=== PATIENT | female | born 1995 | race Hispanic/Latino ===

== ENCOUNTER 2024-08-01 16:47 | Emergency (ER) | payer OTHER ==
--- OUTSIDE RECORDS SUMMARY | 2024-08-01 17:00 | XMS REPORT | Continuity of Care Document ---
Author Name Unknown Address [address] [facility] [address] [place] [address] [facility] [place] Address [address] [facility] [address] [place] [address] Care Team Providers Care Evaluation Engineer Name Role Phone EVELINE WISDOM Primary Care Physician JORDAN Nair Attending Clinician JORDAN De La Torre Attending Clinician ANISHA Ann Attending Clinician Veronica LEEROY Wiley Attending Clinician Unavailable Leeroy Camejo MD Attending Clinician [phone] RADIOLOGY Attending Clinician Unavailable EVELINE WISDOM Attending Clinician Unavail able Eveline Walton Attending Clinician + Doctor Unassigned, [place] Attending Clinician U LASHELL Ko Attending Clinician Unavailab Lashell Lea Attending Clinician [phone] ZAIRA HUANG Attending Clinician Unavailabl jenae Garcia [facility] Attending Clinician Zaira Dudley Attending Clinician [phone] JOSY COBIAN Attending Clinician Unavailable Nemesio Schultz MD Attending Clinician + Josy Cobian MD Attending Clinician [phone] Ac Felix DO Attending Clinician [phone] Camilo Lomeli MD Attending Clinician [phone] [facility]ending [facility] + Provider, [facility] Temp Attending Clinician Veronica vailable Emely Garner Attending Clinician [phone] EMELY DUFFY Attending Clinician Unavailab le FR[place] Attending Clinician Unavail able Ultrasound, Tevincynthia Attending Clinician Unavaila LEEROY Kim Admitting Clinician Unavailable JOSY COBIAN Admitting Clinician Unavailable Josy Cobian MD Admitting Clinician [phone] Payers Payer Name Policy Type Policy Number Effective Date Expirati on Date Source [facility] EPO [id number] 2024 00:00:00 [facility] [id number] 2016 00:00:00 Problems Condition Name Condition Details Condition Category Status Onset Date Resolution Date Last Treatment Date Treating Clinician Comments Source Anemia, Anemia, Disease Active 2020-05 00:00: 00 [facility] Elevated blood pressure affecting in third trimester, antepartum Elevated blood pressure affecting in third trimester, antepartum Disease Active 2020-05 00:00: 00 [facility] GBS (group b Streptococ cus) UTI complicati ng , second trimester GBS (group b Streptococ cus) UTI complicati ng , second trimester Disease Active 12-16 00:00: 00 Overview: Formattin g of this note might be different from the original. Treated with Keflex per protocol book. [facility] Pain pelvic Pain pelvic Disease Active 12-12 00:00: 00 [facility] Other general counseling and advice for contracept fernando management Other general counseling and advice for contracept fernando management Disease Active 01-04 00:00: 00 [facility] Nexplanon in place Nexplanon in place Disease Active 01-04 00:00: 00 [facility] (spontaneo us vaginal delivery) (spontaneo us vaginal delivery) Disease Resolve d 2020-05 00:00: 00 2021-06-04 00:00:00 2021-06-04 10:43:04 [facility] Single live Single live Disease Resolve d 2020-05 00:00: 00 2021-06-04 00:00:00 2021-06-04 10:43:02 [facility] GBS (group B Streptococ cus carrier), +RV culture, currently GBS (group B Streptococ cus carrier), +RV culture, currently Disease Resolve d 2020-05 00:00: 00 2021-06-04 00:00:00 2021-06-04 10:42:52 [facility] 37 weeks gestation of 37 weeks gestation of Disease Resolve d 2020-05 1 00:00: 00 2021-06-04 00:00:00 2021-06-04 10:42:29 [facility] 36 weeks gestation of 36 weeks gestation of Disease Resolve d 2020-05 00:00: 00 2021-06-04 00:00:00 2021-06-04 10:42:28 [facility] Preeclamps ia, third trimester Preeclamps ia, third trimester Disease Resolve d 2020-05 00:00: 00 2021-06-04 00:00:00 2021-06-04 10:42:59 [facility] Rubella non-immune status, antepartum Rubella non-immune status, antepartum Disease Resolve d 7-31 00:00: 00 2021-06-04 00:00:00 2021-06-04 10:43:00 [facility] Multiparit y Multiparit y Disease Resolve d 7-29 00:00: 00 2021-06-04 00:00:00 2021-06-04 10:42:53 [facility] Supervisio n of high risk , antepartum Supervisio n of high risk , antepartum Disease Resolve d 4-03 00:00: 00 2021-06-04 00:00:00 2021-06-04 10:43:03 [facility] Routine follow-up Routine follow-up Disease Resolve d 11-26 00:00: 00 2017-01-04 00:00:00 2017-01-04 17:19:17 [facility] Pre-eclamp herson affecting , antepartum Pre-eclamp herson affecting , antepartum Disease Resolve d 11-04 00:00: 00 2016-11-26 00:00:00 2016-11-26 14:22:27 [facility] (spontaneo us vaginal delivery) (spontaneo us vaginal delivery) Disease Resolve d 11-04 00:00: 00 2016-11-26 00:00:00 2016-11-26 14:22:28 [facility] Single liveborn, born in hospital, delivered Single liveborn, born in hospital, delivered Disease Resolve d 11-04 00:00: 00 2016-11-26 00:00:00 2016-11-26 14:22:29 [facility] Anemia affecting in first trimester Anemia affecting in first trimester Disease Resolve d 2015- 2-12 00:00: 00 2016-11-26 00:00:00 2016-11-26 14:22:22 [facility] Other and unspecifie d uterine inertia, 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, antepartum Disease Resolve d 11-04 00:00: 00 2016-11-04 00:00:00 2016-11-04 22:56:00 [facility] 39 weeks gestation of 39 weeks gestation of Disease Resolve d 11-04 00:00: 00 2016-11-04 00:00:00 2016-11-04 22:56:08 [facility] Elevated blood pressure affecting in third trimester, antepartum Elevated blood pressure affecting in third trimester, antepartum Disease Resolve d 11-04 00:00: 00 2016-11-04 00:00:00 2016-11-04 22:56:03 [facility] Other threatened labor, antepartum Other threatened labor, antepartum Disease Resolve d 2016- 6-16 00:00: 00 2016-11-04 00:00:00 2016-11-04 22:56:27 [facility] Obesity in Obesity in Disease Resolve d 5-15 00:00: 00 2016-10-14 00:00:00 2016-10-14 10:50:30 [facility] Encounter for supervisio n of normal first in first trimester Encounter for supervisio n of normal first in first trimester Disease Resolve d 2015-05 2-12 00:00: 00 2016-08-17 00:00:00 2016-08-17 12:07:25 [facility] Allergies, Adverse Reactions, Alerts Allergy Name Allergy Type Status Severity Reaction(s) Onset Date Inactive Date Treating Clinician Comments Source Penicill in Propensi ty to adverse reaction s Active Rash 11-04 00:00: 00 [facility] PENICILL IN DRUG INGREDI Active Rash 11-04 00:00: 00 [facility] Social History Social Habit Start Date Stop Date Quantity Comments Source ASSERTION [facility] Alcoholic beverage intake 2024-06-22 00:00:00 2024-06-22 00:00:00 Current non-drinker of alcohol (finding) [facility] Exposure to SARS-CoV-2 (event) 2021-06-08 00:00:00 2021-07-08 12:58:00 Not sure [facility] Alcohol intake 2021-01-27 00:00:00 2021-01-27 00:00:00 Current non-drinker of alcohol (finding) [facility] Tobacco use and exposure 2020-12-12 00:00:00 2020-12-12 00:00:00 Smokeless tobacco non-user [facility] History of Social function 2020-12-12 00:00:00 2020-12-12 00:00:00 [facility] Sex assigned at 1995 00:00:00 1995 00:00:00 [facility] Smoking Status Start Date Stop Date Source Never smoked tobacco [facility] Medications Ordered Medication Name Filled Medication Name Start Date Stop Date Current Medication? Ordering Clinician Indication Dosage Frequency Signature (SIG) Comments Components Source NIFEdipine ER 30 mg tablet 2020-05 00:00: 00 Yes [id number] 30mg Take 1 tablet by mouth daily. [facility] ferrous sulfate 325 mg (65 mg iron) tablet 2020-05 00:00: 00 Yes [id number] 325mg Take 1 tablet by mouth 2 (two) times daily. [facility] vit 33-iron-fol ic-dha (SELECT-OB + DHA) 29 mg iron-1 mg -250 mg combo pack 12-12 00:00: 00 04-12 00:00 :00 No [id number] 1{packe t} Take 1 Packet by mouth daily. [facility] Immunizations Ordered Immunization Name Filled Immunization Name Date Status Comments Source TDAP 2021-02-11 00:00:00 Completed [facility] TDAP 2021-02-11 00:00:00 Completed [facility] HPV9 2017-06-07 00:00:00 Completed [facility] HPV9 2017-06-07 00:00:00 Completed [facility] HPV9 2017-01-04 00:00:00 Completed [facility] HPV9 2017-01-04 00:00:00 Completed [facility] HPV9 2016-11-05 00:00:00 Completed [facility] HPV9 2016-11-05 00:00:00 Completed [facility] TDAP 2016-08-17 00:00:00 Completed [facility] TDAP 2016-08-17 00:00:00 Completed [facility] TDAP Unknown Completed [facility] HPV9 Unknown Completed [facility] TDAP Unknown Completed [facility] HPV9 Unknown Completed [facility] Vital Signs Vital Name Observation Time Observation Value Comments S ource Diastolic blood pressure 2024-06-22 19:15:00 95 mm[Hg] [facility] Heart rate 2024-06-22 19:15:00 83 /min Un[facility] Oxygen saturation in Arterial blood by Pulse oximetry 2024-06-22 19:15:00 100 /min [facility] Systolic blood pressure 2024-06-22 19:15:00 155 mm[Hg] [facility] Body temperature 2024-06-22 19:13:00 36.94 Diana [facility] Respiratory rate 2024-06-22 19:13:00 20 /min [facility] Body height 2024-06-22 19:13:00 172.7 cm [facility] Body weight 2024-06-22 19:13:00 61.236 kg [facility] BMI 2024-06-22 19:13:00 20.53 kg/m2 [facility] Systolic blood pressure 2021-07-08 18:59:00 126 mm[Hg] [facility] Diastolic blood pressure 2021-07-08 18:59:00 89 mm[Hg] [facility] Heart rate 2021-07-08 18:57:00 94 /min [facility] Body temperature 2021-07-08 18:57:00 37 Diana [facility] Respiratory rate 2021-07-08 18:57:00 20 /min [facility] Body height 2021-07-08 18:57:00 160 cm [facility] Body weight 2021-07-08 18:57:00 64.501 kg [facility] BMI 2021-07-08 18:57:00 25.19 kg/m2 [facility] Procedures Procedure Date / Time Performed Performing Clinicia n Source VENOUS REFLUX DUPLEX BILATERAL - BY VASCULAR LAB 2024-06-26 16:00:00 Leeroy Camejo [facility] Encounters Start Date/Time End Date/Time Encounter Type Admission Type Attending Clinicians Care Facility Care Department Encounter ID Source 2024-08-01 14:00:00 2024-08-01 14:16:28 Outpatient JORDAN TTAE [facility]ISOL [facility] [id number] [facility] 2024-07-31 13:45:00 2024-07-31 13:45:[address] [facility] [id number] [facility] 2024-06-26 08:47:01 2024-06-26 23:59:00 Outpatient R LEEROY CAMEJO [facility] [id number] [facility] 2024-06-26 08:47:01 2024-06-26 23:59:00 Hospital [facility] 1.2.840.114 350.1.13.10 4.2.7.2.686 [id number] [facility] 2024-06-22 13:00:00 2024-06-22 13:48:56 Outpatient R LEEROY CAMEJO [facility] [id number] [facility] 2024-06-22 13:00:00 2024-06-22 13:48:56 Office Visit Leeroy Camejo [facility] 1.2.840.114 350.1.13.10 4.2.7.2.686 [id number] [facility] 2023-02-16 09:00:00 2023-02-16 09:00:[address] [facility] [id number] [facility] 2023-02-11 09:52:33 2023-02-11 09:52:33 Outpatient SFA SFA [id number] Valeriano F Alexandro 2023-02-10 10:08:52 2023-02-10 10:08:52 Outpatient SFA SFA [id number] Valeriano Swanson Alexandro 2022-08-17 10:34:00 2022-08-17 10:34:00 Outpatient SFA SFA [id number] Valeriano Sky Alexandro 2022-04-15 10:18:42 2022-04-15 10:18:42 Outpatient SFA SFA [id number] Valeriano Swanson Alexandro 2021-07-08 12:45:00 2021-07-08 13:21:44 Outpatient R EVELINE WISDOM [facility] [id number] [facility] 2021-07-08 12:45:00 2021-07-08 13:21:44 Office Visit ArpitaeffieEveline Vishnu [facility] V[facility]UAL PRODUCTION SPECIALIST [facility] CHILD [facility] 1.2.840.114 350.1.13.10 4.2.7.2.686 [id number] [facility] 2021-07-08 12:45:00 2021-07-08 12:45:00 Outpatient R LIAMLINHEFFIE EVELINE [facility] [id number] [facility] 2021-06-18 13:00:00 2021-06-18 13:00:00 Outpatient R LIAMLINHEFFIE EVELINE [facility] [id number] [facility] 2021-06-04 09:45:00 2021-06-04 11:21:34 Outpatient R LIAMLINHEFFIE EVELINE [facility] [id number] [facility] 2021-06-04 09:45:00 2021-06-04 11:21:34 Office Visit Eveline Wisdom [facility] V[employer] PRODUCTION SPECIALIST [facility] MATERNAL & CHILD [facility] 1..840.114 350.1.13.10 4.2.7.2.686 [id number] [facility] 2021-06-04 09:45:00 2021-06-04 11:21:34 [address] [facility] [id number] [facility] 2021-06-04 00:00:00 2021-06-04 00:00:00 Orders Only Doctor Unassigned, Cas[place]es [facility] 1..840.114 350.1.13.10 4.2.7.2.686 [id number] [facility] 2021-05-22 15:00:00 2021-05-22 15:00:[address] [facility] [id number] [facility] 2021-05-22 15:00:00 2021-05-22 15:00:[address] [facility] [id number] [facility] 2021-05-06 00:00:00 2021-05-06 00:00:00 Orders Only Doctor Unassigned, [place]es [facility] 1..114 350.1.13.10 4.2.7.2.686 [id number] [facility] 2021-05-01 09:00:00 2021-05-01 10:09:07 Outpatient R LASHELL GANDHI [facility] [id number] [facility] 2021-05-01 09:00:00 2021-05-01 10:09:07 Routine Visit Lashell Gandhi [facility] [employer] PRODUCTION SPECIALIST [facility] MAT[facility]NAL & CHILD [facility] 1..114 350.1.13.10 4.2.7.2.686 [id number] [facility] 2021-04-21 10:00:00 2021-04-21 10:38:[address] [facility] [id number] [facility] 2021-04-21 09:59:48 2021-04-21 10:38:15 Nurse Visit Visit, Ang-Rmchp Nurse Zaira Huang [facility] [employer] PRODUCTION SPECIALIST [facility] 1..114 350.1.13.10 4.2.7.2.686 [id number] [facility] 2021-04-08 14:19:00 2021-04-14 17:02:00 Inpatient P JOSY COBIAN [facility] LE[facility] [id number] [facility] 2021-04-08 14:19:00 2021-04-14 17:02:00 Hospital Encounter Nemesio Schultz Josy [facility] 1.114 350.1.13.10 4.2.7.2.686 [id number] [facility] 2021-04-14 00:00:00 2021-04-14 00:00:00 Telephone Lashell Gandhi [facility] [employer] PRODUCTION SPECIALIST [facility] MATERNAL & CHILD [facility] 1.2.840.114 350.1.13.10 4.2.7.2.686 [id number] [facility] 2021-04-10 17:20:00 2021-04-10 22:50:00 Anesthesia Event Ac Felix, [facility] 1..840.114 350.1.13.10 4.2.7.2.686 [id number] [facility] 2021-04-09 00:00:00 2021-04-09 00:00:00 Telephone Fritz Parish [facility] V[employer] PRODUCTION SPECIALIST [facility] MATERNAL & CHILD [facility] 1..840.114 350.1.13.10 4.2.7.2.686 [id number] [facility] 2021-04-08 14:19:00 2021-04-08 14:19:00 Inpatient JOSY CRAMRE [facility] [id number] [facility] 2021-04-08 11:00:01 2021-04-08 11:35:00 Routine Visit Provider, TevinRmchp Emely Marcelino [facility] PRODUCTION SPECIALIST [facility] MATERNAL & CHILD [facility] 1..840.114 350.1.13.10 4.2.7.2.686 [id number] [facility] 2021-04-08 11:00:00 2021-04-08 11:35:[address] [facility] [id number] [facility] 2021-04-04 11:00:00 2021-04-04 11:00:[address] [facility] [id number] [facility] 2021-03-17 14:45:00 2021-03-17 15:03:37 Outpatient R FRITZ [facility] [id number] [facility] 2021-03-17 14:37:20 2021-03-17 15:03:37 Routine Visit Provider, Fritz Lomeli [facility] [employer] PRODUCTION SPECIALIST [facility] 1.2.840.114 350.1.13.10 4.2.7.2.686 [id number] [facility] 2021-03-03 00:00:00 2021-03-03 00:00:00 Fritz Pedersen [facility] [employer]UD[employer] VISUAL PRODUCTION SPECIALIST [facility] CHILD [facility] 1.2.840.114 350.1.13.10 4.2.7.2.686 [id number] [facility] 2021-03-03 00:00:00 2021-03-03 00:00:00 Patient Secure MsEveline Cortes [facility] [employer] PRODUCTION SPECIALIST [facility] 1.2.840.114 350.1.13.10 4.2.7.2.686 [id number] [facility] 2021-02-27 14:31:05 2021-02-27 15:13:09 Routine Visit Provider, Fritz Lomeli [facility] V[employer] PRODUCTION SPECIALIST [facility] 1.2.840.114 350.1.13.10 4.2.7.2.686 [id number] [facility] 2021-02-27 14:45:00 2021-02-27 14:45:[address] [facility] [id number] [facility] 2021-02-25 09:51:57 2021-02-25 10:50:30 Routine Visit Provider, Fritz Lomeli [facility] VISUAL PRODUCTION SPECIALIST [facility] 1.2840.114 350.1.13.10 4.2.7.2.686 [id number] [facility] 2021-02-25 10:00:00 2021-02-25 10:00:[address] [facility] [id number] [facility] 2021-02-13 00:00:00 2021-02-13 00:00:00 Telephone Lashell Gandhi [facility] V[employer] PRODUCTION SPECIALIST [facility] MATERNAL & CHILD [facility] 1.2.840.114 350.1.13.10 4.2.7.2.686 [id number] [facility] 2021-02-12 00:00:00 2021-02-12 00:00:00 Patient Secure Msg Doctor Unassigned, [place] [facility] 1..840.114 350.1.13.10 4.2.7.2.686 [id number] [facility] 2021-02-11 10:48:44 2021-02-11 11:42:00 Routine Visit Lashell Gandhi [facility] VISUAL PRODUCTION SPECIALIST [facility] 1..840.114 350.1.13.10 4.2.7.2.686 [id number] [facility] 2021-02-11 10:45:00 2021-02-11 10:45:00 Outpatient R LASHELL GANDHI [facility] [id number] [facility] 2021-01-27 08:07:21 2021-01-27 08:40:48 Routine Visit Lashell Gandhi [facility] VISUAL PRODUCTION SPECIALIST [facility] 1..840.114 350.1.13.10 4.2.7.2.686 [id number] [facility] 2021-01-27 08:15:00 2021-01-27 08:15:00 Outpatient R LASHELL GANDHI [facility] [id number] [facility] 2021-01-24 00:00:00 2021-01-24 00:00:00 Abstract Lashell Gandhi [facility] VISUAL PRODUCTION SPECIALIST [facility] 1.2.840.114 350.1.13.10 4.2.7.2.686 [id number] [facility] 2021-01-24 00:00:00 2021-01-24 00:00:00 Telephone Lashell Gandhi [facility]UD[facility] VISUAL PRODUCTION SPECIALIST [facility] MATERNAL & CHILD [facility] 1.2840.114 350.1.13.10 4.2.7.2.686 [id number] [facility] 2021-01-24 00:00:00 2021-01-24 00:00:00 Abstract Lashell Gandhi [facility] AUD[employer] VISUAL PRODUCTION SPECIALIST [facility] CHILD [facility] 1..840.114 350.1.13.10 4.2.7.2.686 [id number] [facility] 2021-01-24 00:00:00 2021-01-24 00:00:00 Telephone Lashell Gandhi [facility] AUD[employer] VISUAL PRODUCTION SPECIALIST [facility] CHILD [facility] 1.84.114 350.1.13.10 4.2.7.2.686 [id number] [facility] 2021-01-23 09:44:56 2021-01-23 10:44:56 Hospital Librarian Visit [facility] 1.2840.114 350.1.13.10 4.2.7.2.686 [id number] [facility] 2021-01-23 09:44:56 2021-01-23 10:44:56 Hospital Librarian Visit Ultrasound, [facility] SPECIALIST [facility] 1.2.840.114 350.1.13.10 4.2.7.2.686 [id number] [facility] 2021-01-23 09:45:00 2021-01-23 09:45:[address] [facility] [id number] [facility] 2021-01-17 00:00:00 2021-01-17 00:00:00 Telephone MinhLashell [facility] AUDIO VISUAL PRODUCTION SPECIALIST [facility] 1.2.840.114 350.1.13.10 4.2.7.2.686 [id number] [facility] 2021-01-17 00:00:00 2021-01-17 00:00:00 Telephone MinhLashell [facility] AUDIO VISUAL PRODUCTION SPECIALIST [facility] CHILD [facility] 1.2.840.114 350.1.13.10 4.2.7.2.686 [id number] [facility] 2021-01-17 00:00:00 2021-01-17 00:00:00 Telephone Paige Gandhiaisha [facility] AUDIO VISUAL PRODUCTION SPECIALIST [facility] 1.2.840.114 350.1.13.10 4.2.7.2.686 [id number] [facility] 2021-01-17 00:00:00 2021-01-17 00:00:00 Telephone MinhLashell [facility] AUDIO VISUAL PRODUCTION SPECIALIST [facility] 1.2.840.114 350.1.13.10 4.2.7.2.686 [id number] [facility] 2021-01-13 07:48:23 2021-01-13 08:26:34 Routine Visit GandhiLashell [facility] AUDIO VISUAL PRODUCTION SPECIALIST [facility] CHILD [facility] 1.2.840.114 350.1.13.10 4.2.7.2.686 [id number] [facility] 2021-01-13 07:48:23 2021-01-13 08:26:34 Routine Visit GandhiLashell [facility] AUDIO VISUAL PRODUCTION SPECIALIST [facility] MATERNAL & CHILD [facility] 1.84.114 350.1.13.10 4.2.7.2.686 [id number] [facility] 2021-01-13 08:00:00 2021-01-13 08:00:00 Outpatient R LASHELL [facility] [id number] [facility] 2021-01-01 00:00:00 2021-01-01 00:00:00 Telephone GandhiLashell [facility] AUDIO VISUAL PRODUCTION SPECIALIST [facility] 1.840.114 350.1.13.10 4.2.7.2.686 [id number] [facility] [facility] 2020-12-16 00:00:00 2020-12-16 00:00:00 Telephone MinhLashell [facility] AUDIO VISUAL PRODUCTION SPECIALIST [facility] [id number] [facility] 2020-12-12 07:55:32 2020-12-12 09:15:06 Initial Visit GandhiLashell [facility] AUDIO VISUAL PRODUCTION SPECIALIST [facility] 1..114 [id number] [facility] 2020-12-12 07:30:00 2020-12-12 07:30:00 Outpatient R EVELINE W[facility] [id number] [facility] 2020-12-12 00:00:00 2020-12-12 00:00:00 Orders Only Doctor Unassigned, [place] [facility] 1..114 [id number] [facility] 2020-09-13 09:30:00 2020-09-13 09:47:28 Outpatient R EVELINE W[facility] [facility] [id number] [facility] 2020-09-13 09:30:00 2020-09-13 09:30:[address] [facility] [id number] [facility]
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
[2024-08-01 21:41] VITALS: BP 145/91; TEMP 97.8; O2SAT 100
== END 2024-08-01 17:29 | disposition home or self-care (01) ==
LOC: ER 16:47
DX: G44.319 Acute post-traumatic headache, not intractable (principal); V53.5XXA Driver of pick-up truck or van injured in collision with car, pick-up truck or van in traffic accident, initial encounter